=== PATIENT | female | born 1970 ===

== ENCOUNTER 2022-10-25 17:40 | Emergency (ER) | payer MEDICAID ==
[~2022-10-25] VITALS: Ht 162.6 cm; Wt 77.3 kg
[2022-10-25 21:49] VITALS: BP 132/84
== END 2022-10-26 01:42 | disposition left against medical advice (07) ==
LOC: EMS 17:47
DX: Z53.21 Procedure and treatment not carried out due to patient leaving prior to being seen by health care provider (principal)